=== PATIENT | male | born 1995 | race Two or more races ===

== ENCOUNTER 2023-11-26 11:30 | Emergency (ER) | payer OTHER ==
[~2023-11-26] VITALS: Ht 172.7 cm; Wt 108.6 kg
[2023-11-26 11:37] VITALS: TEMP 97
[2023-11-26] MEDS ORDERED: IBUP-1492 PO (13:32)
[2023-11-26] MEDS ORDERED: AMOX250C4 PO (13:32)
[2023-11-26 14:03] VITALS: BP 118/64; PULSE 66; RESP 18
== END 2023-11-26 14:04 | disposition home or self-care (01) ==
LOC: EMS 11:30
DX: H66.92 Otitis media, unspecified, left ear (principal)
CPT/HCPCS: 99283; Z7502